=== PATIENT | male | born 1975 | race Native Hawaiian/Other Pacific Islander ===

== ENCOUNTER 2019-04-13 16:52 | Outpatient (CLI) | payer BC | END 2019-04-13 23:41 | disposition home or self-care (01) | LOC: RAD 16:52 | DX: M25.50 Pain in unspecified joint (principal); M54.6 Pain in thoracic spine; M54.5 Low back pain; M54.2 Cervicalgia ==

== ENCOUNTER 2019-05-19 10:02 | Outpatient (CLI) | payer BC | END 2019-05-19 23:33 | disposition home or self-care (01) | LOC: MRI 10:02 | DX: M25.50 Pain in unspecified joint (principal); M47.812 Spondylosis without myelopathy or radiculopathy, cervical region; M54.12 Radiculopathy, cervical region; M54.10 Radiculopathy, site unspecified; M54.2 Cervicalgia ==